=== PATIENT | male | born 1985 | race African-American/Black ===

== ENCOUNTER 2023-11-09 06:25 | Day surgery (SDC) | payer BC, SELFPAY ==
[2023-11-09 08:47] VITALS: BMI 53.2
[2023-11-09 08:50] VITALS: BMI 53.2
[2023-11-09] MEDS: CELEBREX 200 MG PO (08:51)
[2023-11-09] MEDS: TYLENOL 1000 MG PO (08:51)
[2023-11-09] MEDS: NORMOSOL-R/PLASMALYTE-A 1000 IV (08:53)
[2023-11-09 08:57] VITALS: BP 172/86
[2023-11-09 13:00] VITALS: BP 140/92; BP 172/86
[2023-11-09 13:15] VITALS: BP 128/80
[2023-11-09 13:30] VITALS: BP 141/91
[2023-11-09 14:00] VITALS: BP 144/68
== END 2023-11-09 14:30 | disposition home or self-care (01) ==
LOC: SDS 06:25
PROVIDERS: ATTENDING PHYSICIAN Orthopaedic Surgery
DX: S63.591A Other specified sprain of right wrist, initial encounter (principal); X58.XXXA Exposure to other specified factors, initial encounter
CPT/HCPCS: 29846

== ENCOUNTER 2024-01-12 12:09 | Emergency (ER) | payer BC, SELFPAY ==
[2024-01-12 12:17] VITALS: BP 160/83
[2024-01-12 12:45] LABS: % Basophils 0.3 % (0-2); % Eosinophils 1.6 % (0-6); % Immature Granulocytes 0.2 % (0-0.5); % Lymphocytes 40.8 % (20.5-51.1); % Monocytes 9.3 % (1.7-9.3); % Neutrophils 47.8 % (42.2-75.2); Absolute Eosinophils 0.1 10^3/uL (0-0.7); Absolute Lymphocytes 2.5 10^3/uL (1.2-3.4); Absolute Monocytes 0.6 10^3/uL (0.1-0.6); Absolute Neutrophils 2.9 10^3/uL (1.4-6.5); Hemoglobin 12.8 g/dL (13.0-18.0); Mean Corp Hgb Conc. 32.8 g/dL (33.0-37.0); Mean Corpuscular Volume 76.3 fL (80.0-94.0); Mean Platelet Volume 9.2 fL (7.4-10.4); Nucleated Red Blood Cells % 0 % (-); Platelet Count 231 10^3/uL (130-400); Red Blood Cell Count 5.11 10^6/uL (4.70-6.10); Red Cell Dist. Width 15.9 % (11.5-14.5); White Blood Cell Count 6.1 10^3/uL (4.8-10.8)
[2024-01-12 13:04] LABS: ALT (SGPT) 27 U/L (0-50); AST (SGOT) 22 U/L (17-59); Albumin 4.3 g/dl (3.5-5.0); Alkaline Phosphatase 67 U/L (38-126); Blood Urea Nitrogen 15 mg/dl (9-20); Calcium 9.2 mg/dl (8.4-10.2); Carbon Dioxide 26 mmol/L (22-30); Chloride 103 mmol/L (98-107); Glucose 134 mg/dl (70-99); Potassium 4.1 mmol/L (3.5-5.1); Sodium 138 mmol/L (135-145); Total Bilirubin 0.4 mg/dl (0.2-1.3); Total Protein 7.4 g/dl (6.3-8.2); eGFR > 60.00
[2024-01-12 13:07] LABS: Troponin I < 0.012 ng/ml
--- NOTE | 2024-01-12 14:15 | ED.GENMED ---
History of Present Illness
<Stephanie Hollis PA-C - Last Filed: 01/12/24 19:14>
General
Chief Complaint: Chest Pain
Source: patient
Exam Limitations: none
Time Seen by Provider: 01/12/24 14:15
Nursing documentation reviewed up to this point in time: agreed with
History of Present Illness
History of Present Illness:
38-year-old male with past medical history of sleep apnea, prediabetes presents emergency department today with concerns of generalized URI symptoms and persistent cough for the past week. Patient reports that he originally saw urgent care for this
issue and was started on steroids and azithromycin. Patient reports that his symptoms much improved however his cough still persists. Patient also started develop right-sided chest pain a few days ago. Patient denies shortness of breath, denies
hemoptysis, denies palpitations, denies syncopal episodes. Patient denies any personal or family history of cardiac disease. Patient denies any redness or swelling in his lower extremities, denies recent travel, denies recent surgeries or hospital
stays. Patient denies upper back pain, nausea, vomiting. Patient denies any fevers or chills. Patient denies any sick contacts.
Past History
<Stephanie Hollis PA-C - Last Filed: 01/12/24 19:14>
Past History
ED Past Medical History: NIDDM (Is supposed to take Metformin but doesn't 'I just don't like taking medicine'), Psychiatric (Anxiety/depression/PTSD), Other (Pituitary tumor should take medication 'Cabergoline' (sp?) but doesn't due to side effects)
and Other (Sleep apnea uses CPAP)
ED Past Surgical History: Orthopedic (Lumbar spinal surgery) and Other (Umbilical hernia repair)
Patient has exhibited threatening behavior?: No
Social History
Tobacco: Non-smoker
Alcohol: Occasional
Drug: None
Personal:
Living: with family
Employment: Employed ([employer])
Family History
Family History: Other (Noncontributory)
Review of Systems
<Stephanie Hollis PA-C - Last Filed: 01/12/24 19:14>
Review of Systems
All Other Systems: ROS reviewed and negative except as documented in HPI and ROS
Phy Exam
<JACQUELYN Montanez Last Filed: 01/12/24 19:14>
Physical Exam
Physical Exam:
General: Patient is well appearing and in no acute distress; non-toxic
Skin: Warm and dry, no rashes or lesions
Head: Normocephalic, atraumatic
Eyes: Sclera non-icteric. EOMs intact. PERRLA.
Ears: No TM erythema noted bilaterally
Cardiac: Regular rate and rhythm, no murmurs. Mild tenderness to palpation in the right external chest wall.
Peripheral Vascular: No lower extremity swelling or edema
Pulm: Normal respiratory effort, scattered rhonchi heard bilaterally that clears with coughing
Neuro: CN II-XII intact, no focal neurologic deficits.
Psychiatric: Appropriate mood and affect.
Scores
<Stephanie Hollis PA-C - Last Filed: 01/12/24 19:14>
Heart Score for Chest Pain Patients
STEMI patient?: No
History: Slightly or Non-Suspicious
ECG: Normal
Age: </= 45 years
Risk Factors: 1 or 2 Risk Factors
Troponin: </= Normal Limit
Heart Score for Chest Pain Patients: 1
Heart Score Risk: 2.5% MACE over next 6 weeks
Course
<Stephanie Hollis PA-C - Last Filed: 01/12/24 19:14>
Orders/Labs/Results
Orders:
Orders
01/12/24 12:11
Electrocardiogram (*1) Urgent
Reason for Study: Chest Pain
EKG- Treatment ONCE
01/12/24 12:20
Chest [CR Chest - 2 Views ] Urgent
Comment:
Reason For Exam: cough
01/12/24 12:27
Complete Blood Count/With Diff Urgent
Comprehensive Metabolic Panel Urgent
Troponin I Urgent
01/12/24 14:38
COVID-19 Antigen Urgent
Source: Nasal Swab
D-Dimer Urgent
Influenza A+B Rapid Molecular Urgent
OTTO Source: Nasal Swab
Specimen Description:
Abnormal Lab Results
01/12/24
12:27
Hgb 12.8 L g/dL
(13.0-18.0)
MCV 76.3 L fL
(80.0-94.0)
MCH 25.0 L pg
(27.0-31.0)
MCHC 32.8 L g/dL
(33.0-37.0)
RDW 15.9 H %
(11.5-14.5)
Glucose 134 H mg/dl
(70-99)
01/12/24 12:27
01/12/24 12:27
Vital Signs
Initial and Last Documented VS:
Initial Vital Signs
Temp Pulse Resp BP Pulse Ox
98.4 F 82 18 160/83 98
01/12/24 12:17 01/12/24 12:17 01/12/24 12:17 01/12/24 12:17 01/12/24 12:17
Last Documented Vital Signs
Temp Pulse Resp BP Pulse Ox
98.4 F 66 17 102/55 99
01/12/24 12:17 01/12/24 15:00 01/12/24 15:00 01/12/24 15:00 01/12/24 15:00
<Vasiliy Reyes, DO - Last Filed: 01/12/24 15:33>
Orders/Labs/Results
Orders:
Orders
01/12/24 12:11
Electrocardiogram (*1) Urgent
Reason for Study: Chest Pain
EKG- Treatment ONCE
01/12/24 12:20
Chest [CR Chest - 2 Views ] Urgent
Comment:
Reason For Exam: cough
01/12/24 12:27
Complete Blood Count/With Diff Urgent
Comprehensive Metabolic Panel Urgent
Troponin I Urgent
01/12/24 14:38
COVID-19 Antigen Urgent
Source: Nasal Swab
D-Dimer Urgent
Influenza A+B Rapid Molecular Urgent
OTTO Source: Nasal Swab
Specimen Description:
Abnormal Lab Results
01/12/24
12:27
Hgb 12.8 L g/dL
(13.0-18.0)
MCV 76.3 L fL
(80.0-94.0)
MCH 25.0 L pg
(27.0-31.0)
MCHC 32.8 L g/dL
(33.0-37.0)
RDW 15.9 H %
(11.5-14.5)
Glucose 134 H mg/dl
(70-99)
01/12/24 12:27
01/12/24 12:27
Vital Signs
Initial and Last Documented VS:
Initial Vital Signs
Temp Pulse Resp BP Pulse Ox
98.4 F 82 18 160/83 98
01/12/24 12:17 01/12/24 12:17 01/12/24 12:17 01/12/24 12:17 01/12/24 12:17
Last Documented Vital Signs
Temp Pulse Resp BP Pulse Ox
98.4 F 66 17 102/55 99
01/12/24 12:17 01/12/24 15:00 01/12/24 15:00 01/12/24 15:00 01/12/24 15:00
<Stephanie Hollis PA-C - Last Filed: 01/12/24 19:14>
MDM/Problems Addressed
Differential Diagnosis Includes:
Differentials include acute bronchitis, pneumothorax, pneumonia, COVID-19 infection, influenza
MDM/Problems Addressed:
38 y/o male with pmh of sleep apnea, pre-diabetes presents to the emergency department today with concerns of persistent URI symptoms, as well as chest pain. Here in the emergency department, he is well-appearing, no acute distress, afebrile, he is
not hypoxic. CBC and CMP are unremarkable. He tested negative for COVID and flu. His troponin is undetectable. No indication for repeat troponin at this time. He is EKG shows normal sinus rhythm with no concerning ischemic changes, no
arrhythmia. CXR no evidence of pneumonia. D-dimer negative. Suspect CP secondary to persistent coughing. Suspected prolonged viral syndrome. I did offer tessalon pearls. Patient stable for discharge.
<Stephanie Hollis PA-C - Last Filed: 01/12/24 19:14>
*Pulse Oximetry
Patient hypoxic: no
*EKG
Interpreted by ED Provider?: Yes
EKG Intrepretation Date: 01/12/24
Interpretation: normal
Comparison EKG: changes noted (ventricular rate increased by 34 bpm)
Heart Rate: 86
Rate: normal
Rhythm: sinus
[place]: normal axis
Interval: normal interval
QRS Pattern: normal QRS
*Critical Care Note
Total Time (30-74mins, 75-104mins- exclusive of procedures): Not Applicable
Data Reviewed
Review of Other/Old Records Reveals: Records (Reviewed previous ER physician documentation from 02/23/2021)
ED Attending Note
<Stephanie Hollis PA-C - Last Filed: 01/12/24 19:14>
-
Portions of this chart may have been created with voice recognition software.� Occasional wrong word or��sound alike� substitutions may have occurred due to the inherent limitations of voice recognition software.
<Vasiliy Reyes, DO - Last Filed: 01/12/24 15:33>
ED Attending Note
Patient seen and examined by attending physician: Yes
I performed a history and physical exam of patient and discussed management with resident, I reviewed resident's note and agree with documented findings and plan of care.: Yes
ED Attending Note:
I reviewed and agree with history and treatment plan by Stephanie Hollis. My exam reveals 38-year-old no acute distress. Suspect bronchitis. Doubt ACS or PE. Stable for discharge.
Discharge Plan
Departure
Patient Disposition: Home (Routine Discharge)
Date of Disposition: 01/12/24
Time of Disposition: 15:26
Patient with high blood pressure during this ER visit?: Yes
Condition: Good
Discharge Problem:
Cough, Symptoms of upper respiratory infection (URI), Chest pain
Instructions: Cough, runny nose, and the common cold, Chest pain, BLOOD PRESSURE
Prescriptions:
New
benzonatate 100 mg capsule
100 mg PO TID Qty: 10 0RF
No Action
Ozempic 0.25 mg or 0.5 mg (2 mg/3 mL) Pen Injector
0.25 mg SC QWEEK
Referrals:
NONE,* [Family Provider] -
Activity Restrictions/Additional Instructions:
You can take 1 tablet 3 times a day as needed for cough. You can increase dosing to 2 tablets 3 times a day as needed. Please do not exceed 600 mg in a day.
I also recommend trying her albuterol inhaler again.
Please return to the emergency department should you experience acute worsening of your chest pain, shortness of breath, fainting spells, palpitations, weakness on one-sided body versus other, or other signs or symptoms worrisome to you.
Interventions
Interventions:
*Risk Screen - Suicide Last Done: 01/12/24 12:17
*General Assessment Last Done: 01/12/24 12:17
*Neglect/Abuse Screening Last Done: 01/12/24 12:17
*ED COVID-19 Vaccine History Last Done: 01/12/24 12:17
*Nursing Disposition Last Done: 01/12/24 15:43
ED- Cardiac Assessment Last Done: 01/12/24 14:37
Discharge Date and Time
Discharge Date/Time: 01/12/24 15:43
Print Language: ROMANSH
[2024-01-12 14:34] VITALS: BP 100/63
[2024-01-12 15:00] VITALS: BP 102/55
[2024-01-12 15:05] LABS: D-Dimer 0.34 ug/mlFEU (0.00-0.50)
[2024-01-12 15:09] LABS: COVID-19 Antigen Negative (Negative)
== END 2024-01-12 15:43 | disposition home or self-care (01) ==
LOC: EMR 12:09
PROVIDERS: Emergency Medicine; Physician Assistant; EMERGENCY PHYSICIAN Emergency Medicine
DX: R05.9 Cough, unspecified (principal); R07.89 Other chest pain; G47.30 Sleep apnea, unspecified; E11.9 Type 2 diabetes mellitus without complications; F41.8 Other specified anxiety disorders; F43.10 Post-traumatic stress disorder, unspecified
CPT/HCPCS: 99283; 71046; 80053; 84484; 85025; 85379; 87502; 87811; 93005

== ENCOUNTER 2024-08-22 18:26 | Observation (INO) | payer BC, SELFPAY ==
[2024-08-22] VITALS (8 sets, daily range): BP systolic 110–180; BP diastolic 69–119; BMI 53.5
[2024-08-22 13:45] LABS: Glucose - Point of Care 120 mg/dl (70-99)
--- NOTE | 2024-08-22 13:58 | ED.CVA ---
History of Present Illness
General
Chief Complaint: CVA/TIA Symptoms
Source: patient
Exam Limitations: none
Time Seen by Provider: 08/22/24 13:47
Nursing documentation reviewed up to this point in time: agreed with
Onset of Stroke Symptoms
Onset of symptoms known: Yes
Date of onset of symptoms: 08/22/24
Time of onset of symptoms: 12:30
History of Present Illness
History of Present Illness:
Patient presents to ED secondary to sudden onset of left arm numbness and weakness, left facial numbness sensation, as well as brief moment of inability to speak while he was at work, an approximate 1 hour prior to arrival. Denies headache. Denies
dizziness. Denies blurred vision. Denies difficulty with swallowing. Denies difficulty with ambulation. Patient states that he has had similar left arm weakness and numbness, which have always resolved spontaneously. However, those symptoms
have never been associated with facial numbness or speech difficulty. Denies recent illness. Denies recent change in medications or diet.
Past History
Past History
ED Past Medical History: NIDDM (Is supposed to take Metformin but doesn't 'I just don't like taking medicine'), Psychiatric (Anxiety/depression/PTSD), Other (Pituitary tumor should take medication 'Cabergoline' (sp?) but doesn't due to side effects)
and Other (Sleep apnea uses CPAP)
ED Past Surgical History: Orthopedic (Lumbar spinal surgery) and Other (Umbilical hernia repair)
Patient has exhibited threatening behavior?: No
Social History
Tobacco: Non-smoker
Alcohol: Occasional
Drug: None
Personal:
Living: with family
Employment: Employed ([employer])
Family History
Family History: Other (Noncontributory)
Review of Systems
Review of Systems
Allergies reviewed?: Yes
All Other Systems: ROS reviewed and negative except as documented in HPI and ROS
Constitutional: Reports no symptoms
Respiratory: Reports no symptoms
Cardiac: Reports no symptoms
ABD/GI: Reports no symptoms
Musculoskeletal: Reports no symptoms
Skin: Reports no symptoms
Neurological: Reports weakness, numbness and other (difficulty with speech)
Phy Exam
Physical Exam
Physical Exam:
Physical Exam
General: no apparent distress, not acutely ill. afebrile. overweight
Head: nc/at. eomi
Neck: supple. no meningeal signs.
Heart: s1/s2 regular rate and rhythm
Lungs: no acute respiratory distress. clear bilaterally
Abdomen: normal bowel sounds. not tender.
Neuro: alert and oriented x 3. no focal neurological deficits. normal speech
Skin: no rash
Psychiatric: well kept. interactive and cooperative
Extremities: no edema. no calf tenderness.
Course
Orders/Labs/Results
Orders:
Orders
08/22/24 13:24
Electrocardiogram (*1) Urgent
Reason for Study: Vertigo / Dizzy
EKG- Treatment ONCE
08/22/24 13:56
Electrocardiogram (*1) Urgent
Reason for Study: Chest Pain
EKG- Treatment ONCE
08/22/24 14:00
Complete Blood Count/With Diff Urgent
Comprehensive Metabolic Panel Urgent
Magnesium Urgent
Troponin I Urgent
08/22/24 14:18
CT Head W/o Iv Contrast Urgent
Comment:
Reason For Exam: LUE/facial numbness/weakness
08/22/24 15:28
Bupivacaine Pf 0.5% [Sensorcaine 0.5% Single Dose] 30 ml INJ OR ONE
Triamcinolone Injectable [Kenalog-40] 40 mg IM NOW ONE
08/22/24 15:45
CT Head Angio W/wo Iv Contrast Urgent
Comment:
Reason For Exam: LUE/facial numbness/weaknss
08/22/24 17:45
Aspirin 325 mg PO NOW STA
Clopidogrel Bisulfate [Plavix] 300 mg PO NOW STA
08/22/24 18:05
Admit/Transfer Patient As Directed
Co-Sign Provider:
Level of Care: Observation services
Assign to:: Telemetry
Physician / Group: danii borja
Diagnosis: TIA/CVA
Reason for Telemetry: Arrhythmia
Date to Stop Telemetry: 08/25/24
Time to Stop Telemetry: 11:00
PRN Pain Medication Management As Directed
May give lesser potent ordered pain med per pt: Yes
preference::
Protocol:: Medication orders for pain may be administered in a
manner that supports deferring to patient preference
when the pt is:
- Requesting an ordered lesser potent pain medication.
Least to most potent pain medications are defined
as: acetaminophen < NSAID < tramadol < opioids
(morphine, oxycodone, hydromorphone).
- Requesting a lesser dose of the same medication IF
ORDERED.
- Requesting a less intrusive route of administration
if both routes are prescribed by the provider (PO <
IV).
08/22/24 18:06
Code Status As Directed
Resuscitation Status: Full Code
08/22/24 18:15
Carotid US [US Cerebrovascular] Routine
Comment:
Reason For Exam: TIA/CVA
08/25/24 11:00
DC Protocol for Telemetry ONCE
Abnormal Lab Results
08/22/24 08/22/24
13:44 14:00
Hgb 12.0 L g/dL
(13.0-18.0)
Hct 36.5 L %
(39.0-52.0)
MCV 74.6 L fL
(80.0-94.0)
MCH 24.5 L pg
(27.0-31.0)
MCHC 32.9 L g/dL
(33.0-37.0)
RDW 16.0 H %
(11.5-14.5)
Absolute Monos (auto) 0.8 H 10^3/uL
(0.1-0.6)
Monocytes % 14.9 H %
(1.7-9.3)
Carbon Dioxide 31 H mmol/L
(22-30)
Glucose 100 H mg/dl
(70-99)
POC Glucose 120 H mg/dl
(70-99)
08/22/24 14:00
08/22/24 14:00
Vital Signs
Initial and Last Documented VS:
Initial Vital Signs
Temp Pulse Resp BP Pulse Ox
98.7 F 82 20 180/119 96
08/22/24 13:34 08/22/24 13:34 08/22/24 13:34 08/22/24 13:34 08/22/24 13:34
Last Documented Vital Signs
Temp Pulse Resp BP Pulse Ox
98.7 F 64 15 145/78 96
08/22/24 13:34 08/22/24 17:00 08/22/24 17:00 08/22/24 17:00 08/22/24 13:58
MDM/Problems Addressed
MDM/Problems Addressed:
Patient evaluated shortly upon arrival by Dr. Becerril, neurology. CT head and CTA head and neck ordered after evaluation. Patient is not a candidate for tenecteplase, secondary to low NIH score without any focal neurological deficit.
CT head/CTA without acute findings. Dr. Becerril, neurology, recommends admission for further workup and starting patient on aspirin and Plavix.
*Pulse Oximetry
SaO2: 96
Oxygen Mode of Delivery: Room air
Patient hypoxic: no
*EKG
Interpreted by ED Provider?: Yes
EKG Intrepretation Date: 08/22/24
Heart Rate: 71
Rate: normal
Rhythm: sinus
[place]: normal axis
Interval: normal interval
*Critical Care Note
Total Time (30-74mins, 75-104mins- exclusive of procedures): Not Applicable
ED Attending Note
-
Portions of this chart may have been created with voice recognition software.� Occasional wrong word or��sound alike� substitutions may have occurred due to the inherent limitations of voice recognition software.
Discharge Plan
Departure
Patient Disposition: Admit
Date of Disposition: 08/22/24
Time of Disposition: 17:46
Admit to: Telemetry
Presentation/result/management discussed w/ accepting MD/DO: Hospitalist
Discharge Problem:
Arm weakness, Expressive aphasia
Interventions
Interventions:
*Risk Screen - Suicide Last Done: 08/22/24 13:34
*General Assessment Last Done: 08/22/24 13:53
*Neglect/Abuse Screening Last Done: 08/22/24 13:34
*ED COVID-19 Vaccine History Last Done: 08/22/24 13:34
ED- Pulmonary Assessment Last Done: 08/22/24 13:53
ED- Neurological Assessment Last Done: 08/22/24 13:53
ED- Cardiac Assessment Last Done: 08/22/24 13:53
[2024-08-22 14:06] LABS: Hematocrit 36.5 % (39.0-52.0); Hemoglobin 12.0 g/dL (13.0-18.0); Mean Corp Hgb Conc. 32.9 g/dL (33.0-37.0); Mean Corpuscular Volume 74.6 fL (80.0-94.0); Nucleated Red Blood Cells % 0 % (-); Platelet Count 192 10^3/uL (130-400); Red Cell Dist. Width 16.0 % (11.5-14.5)
[2024-08-22 14:37] LABS: ALT (SGPT) 21 U/L (0-50); AST (SGOT) 19 U/L (17-59); Albumin 4.5 g/dl (3.5-5.0); Alkaline Phosphatase 48 U/L (38-126); Blood Urea Nitrogen 17 mg/dl (9-20); Calcium 9.5 mg/dl (8.4-10.2); Carbon Dioxide 31 mmol/L (22-30); Chloride 105 mmol/L (98-107); Estimated Creatinine Clearance > 125 ml/min; Glucose 100 mg/dl (70-99); Magnesium 2.0 mg/dl (1.6-2.3); Potassium 3.8 mmol/L (3.5-5.1); Sodium 141 mmol/L (135-145); Total Protein 7.6 g/dl (6.3-8.2); eGFR > 60.00
[2024-08-22 14:48] LABS: Troponin I < 0.012 ng/ml
[2024-08-22] MEDS: PLAVIX 300 MG PO (17:57)
[2024-08-22] MEDS: ASPIRIN 325 MG PO (17:57)
--- NOTE | 2024-08-22 18:09 | HPS.HSE ---
Family Physician
-
Family Physician: Thomas Jones
Chief Complaint
-
Left upper extremity tingling and expressive aphasia
History of Present Illness
38-year-old male with past medical history of wxz-otsnwmy-upmjiubng diabetes mellitus, pituitary tumor, anxiety, depression, PTSD, lumbar disc disease, sleep apnea came to the hospital with left arm numbness and expressive aphasia. Per patient his
symptoms started around noon. His symptoms lasted around 30 minutes. Denies any previous symptoms. Patient does noted to have issues with compliance with all of his medications. Currently he denies any chest pain, shortness of breath. Denies
any abdominal pain, nausea, vomiting, diarrhea, constipation. Seen by neurology in the ED who recommended admission for further workup.
Medical History
Past Medical History
Past Medical History: Reports NIDDM and Other (Pituitary tumor, depression, anxiety, PTSD)
Past Surgical History: Reports Orthopedic
Social History
Tobacco: Non-smoker
Alcohol: Occasional
Drug: None
Family History
Family History: Not pertinent
Allergies / Home Medications
Allergies reflects when Allergies were last updated in [facility].
Home Medications with original date entered in [facility]
Allergy/Medication List:
Allergies
Allergy/AdvReac Type Severity Reaction Status Date / Time
No Known Allergies Allergy Verified 08/22/24 13:40
Home Medications
Ez Melts Multivitamin W/ Iron 1 tab PO DAILY 08/22/24
ibuprofen 200 mg tablet 400 mg PO DAILYPRN PRN mild pain 08/22/24
metformin 500 mg tablet 500 mg PO HS 08/22/24
vitamin D3-vitamin K2 1 cap PO DAILYPRN PRN supplement 08/22/24
Review of Systems
-
History Source: Patient
A 12 point ROS was completed and negative except as noted: Yes
Neurological: Reports Numbness
Physical Exam
Vital Signs
Vital Signs
Temp Pulse Resp BP Pulse Ox
98.7 F 64 15 145/78 96
08/22/24 13:34 08/22/24 17:00 08/22/24 17:00 08/22/24 17:00 08/22/24 13:58
Physical Exam
General: Well Nourished, No Apparent Distress and Morbidly Obese
HEENT: Anicteric and Moist mucous membranes
Respiratory: Clear and Non Labored Respirations; No Wheezes
Cardiac: S1/S2 and Regular Rhythm
GI: Soft, Non Tender, Non Distended and Normal Bowel Sounds
Rectal: Deferred by Provider
Genito-urinary: No [place]
Musculoskeletal: No Edema
Neuro: Awake, Alert, Oriented and AO x 3
Psych: Calm and Intact Judgment/Insight
Laboratory Results
-
08/22/24 14:00
08/22/24 14:00
Laboratory Results
Total Bilirubin 0.5 mg/dl (0.2-1.3) 08/22/24 14:00
AST 19 U/L (17-59) 08/22/24 14:00
ALT 21 U/L (0-50) 08/22/24 14:00
Alkaline Phosphatase 48 U/L (38-126) 08/22/24 14:00
Troponin I < 0.012 ng/ml 08/22/24 14:00
Data Reviewed
-
CT Scan: Report Reviewed by me, Discussed with Patient and Discussed with Family
Lab Data: Labs Reviewed by me and Discussed with Patient
Impression/Plan
-
Left arm tingling and expressive aphasia likely secondary to TIA/CVA
Continue neurochecks
Aspirin Plavix load in the ED per neurology
Start baby aspirin and Plavix 75 mg starting tomorrow
Check MRI
CT without any hemorrhage
Check A1c, lipid profile
History of diabetes
Per patient not compliant with metformin
Check A1c, insulin sliding scale, Accu-Cheks for now
History of pituitary tumor
Follows with endocrinology outpatient
History of lumbar disc disease
History of sleep apnea
DVT prophy
Lovenox
Full code
--- NOTE | 2024-08-22 20:31 | CON.NEURO ---
Neuro Assessment/Plan
Assessment
head CT imgs rev'd normal
CTA head/neck imgs and rept rev'd, no atherosclerosis.
38 year old man with sudden expressive aphasia, concern for stroke. multiple risk factors including diabetes, sleep apnea, morbid obesity despite young age. ddx including MS
admit for brain MRI w/o and with contrast given concerns for MS
loaded ASA and Plavix, 21 days of DAPT tentatively
Consultation
Order
Date of Consultation: 08/22/24
Requesting Provider: Fahad Alonso
Reason for Consult: stroke
Subjective/Objective
Subjective Data
Date of Service: August 22, 2024
from h&p:
Patient presents to ED secondary to sudden onset of left arm numbness and weakness, left facial numbness sensation, as well as brief moment of inability to speak while he was at work, an approximate 1 hour prior to arrival. Denies headache. Denies
dizziness. Denies blurred vision. Denies difficulty with swallowing. Denies difficulty with ambulation. Patient states that he has had similar left arm weakness and numbness, which have always resolved spontaneously. However, those symptoms
have never been associated with facial numbness or speech difficulty. Denies recent illness. Denies recent change in medications or diet.
I saw him around 2pm after speaking with Dr Alonso and did not call a stroke alert as patient symptoms were mild and he refused TNK
Objective Data
Vital Signs
Temp Pulse Resp BP Pulse Ox
36.4 C 63 16 148/91 98
08/22/24 20:21 08/22/24 20:21 08/22/24 20:21 08/22/24 20:21 08/22/24 20:21
Lab Results
08/22/24 14:00
08/22/24 14:00
Sodium 141 mmol/L (135-145) 08/22/24 14:00
Potassium 3.8 mmol/L (3.5-5.1) 08/22/24 14:00
BUN 17 mg/dl (9-20) 08/22/24 14:00
Glucose 100 mg/dl (70-99) H 08/22/24 14:00
Calcium 9.5 mg/dl (8.4-10.2) 08/22/24 14:00
Patient Allergies
No Known Allergies Allergy (Verified 08/22/24 13:40)
CVA Assessment
Onset of Stroke Symptoms
Date of onset of symptoms: 08/22/24
Time of onset of symptoms: 12:30
Physical Exam
-
mild expressive aphasia difficulty identifying pictures/reading printed materials
face symmetric
full strength b/l UE/LE
palpated T1 subluxation with left paraspinals trigger point, when pushed on exacerbates the left arm paresthesias
Medications
-
Active Medications
Generic Name Dose Route Start Last Admin
Trade Name Freq PRN Reason Stop Dose Admin
Acetaminophen 650 mg 08/22/24 20:00
Acetaminophen 650 Mg Rectal Suppository RECTAL 09/19/24 19:59
Q4HPRN PRN
[place], mild pain, or temp >100.4F
Acetaminophen 650 mg 08/22/24 20:00
Acetaminophen 325 Mg Tablet PO 09/19/24 19:59
Q4HPRN PRN
[place], mild pain, or temp >100.4F
Aspirin 81 mg 08/23/24 08:00
Aspirin 81 Mg Chewable Tablet PO 09/20/24 07:59
DAILY GAYE
Clopidogrel Bisulfate 75 mg 08/23/24 08:00
Clopidogrel 75 Mg Tablet PO 09/20/24 07:59
DAILY GAYE
Dextrose 12.5 grams 08/22/24 20:00
Dextrose 50% (0.5 Grams/Ml) 50 Ml Syringe IV 09/19/24 19:59
[id number] PRN
hypoglycemia
Protocol
Enoxaparin Sodium 40 mg 08/23/24 18:00
Enoxaparin Sodium 40 Mg/0.4 Ml Syringe SC 09/20/24 17:59
QPM GAYE
Glucagon 1 mg 08/22/24 20:00
Glucagon 1 Mg Vial IM 09/19/24 19:59
PRN PRN
hypoglycemia
Protocol
Ibuprofen 400 mg 08/22/24 20:00
Ibuprofen 200 Mg Tablet PO 09/19/24 19:59
DAILYPRN PRN
mod pain
Insulin Aspart 0 units 08/23/24 07:30
Insulin Aspart Low Resistance 300 Units/3 Ml Pen.Injctr SC 09/20/24 07:29
AC GAYE
Protocol
Multivitamins Therapeutic 1 tablet 08/23/24 08:00
Multivitamin Tablet PO 09/20/24 07:59
DAILY GAYE
Sodium Chloride 0 flush 08/22/24 21:00
Sodium Chloride 0.9% (Flush) Syringe IV 09/19/24 20:59
PER PROTOCOL GAYE
Home Medications
�Medication �Instructions �Recorded
Ez Melts Multivitamin W/ Iron 1 tab PO DAILY 08/22/24
ibuprofen 200 mg tablet 400 mg PO DAILYPRN PRN mild pain 08/22/24
metformin 500 mg tablet 500 mg PO HS 08/22/24
vitamin D3-vitamin K2 1 cap PO DAILYPRN PRN supplement 08/22/24
[2024-08-22] MEDS: MELATONIN 5 MG PO (23:24)
--- NOTE | 2024-08-23 02:36 | TRANSFER ---
Pt transferred to 3w from ED via stretcher. Pt stood for standing weight and ambulated to hospital bed. Bp 144/85 P 68 R 16 T 97.9 02 98. NIH 0. Pt wears Cpap HS at baseline. Oriented to room, call lyle within reach, plan of care ongoing.
[2024-08-23 03:00] VITALS: BP 131/85
[2024-08-23 06:55] LABS: Hematocrit 36.5 % (39.0-52.0); Hemoglobin 12.1 g/dL (13.0-18.0); Mean Corp Hgb Conc. 33.2 g/dL (33.0-37.0); Mean Corpuscular Volume 73.6 fL (80.0-94.0); Nucleated Red Blood Cells % 0 % (-); Platelet Count 207 10^3/uL (130-400); Red Cell Dist. Width 15.9 % (11.5-14.5)
[2024-08-23 07:20] LABS: Blood Urea Nitrogen 16 mg/dl (9-20); Calcium 9.2 mg/dl (8.4-10.2); Carbon Dioxide 23 mmol/L (22-30); Chloride 108 mmol/L (98-107); Estimated Creatinine Clearance > 125 ml/min; Glucose 106 mg/dl (70-99); HDL Cholesterol 41 mg/dl; LDL Cholesterol, Calculated 138 mg/dl; Potassium 4.5 mmol/L (3.5-5.1); Sodium 138 mmol/L (135-145); Very Low Density Lipoprotein 13 mg/dl (0-30); eGFR > 60.00
[2024-08-23 07:45] VITALS: BP 154/93
[2024-08-23 08:10] LABS: Glycohemoglobin (HgbA1c) 6.5 % (4.0-5.6)
[2024-08-23 08:37] LABS: Glucose - Point of Care 127 mg/dl (70-99)
[2024-08-23] MEDS: THERAGRAN 1 TABLET PO (08:38)
[2024-08-23] MEDS: PLAVIX 75 MG PO (08:38)
[2024-08-23] MEDS: LOW STRENGTH ASPIRIN 81 MG PO (08:38)
--- NOTE | 2024-08-23 08:40 | PTCARENOTE ---
pt verbalized to speech therapist that he 'felt foggy', needing to think about 'What to say', difficulty verbalizing thoughts. upon going in to assess patient, he confirmed this and verbalized that he was feeing anxious and c/o shoulder area and
left arm felt 'heavy', intermittent tingling' and he 'just didn't feel right'. Dr. Mensah and Dr. Becerril notified and agreed that he intermittently had this yesterday. will continue to monitor.
--- NOTE | 2024-08-23 09:00 | PTCARENOTE ---
symptoms resolving, will continue to monitor.
--- NOTE | 2024-08-23 09:12 | PTOTSP ---
Dysphagia Evaluation
Patient with no signs of oral dysphagia, reporting signs concerning for possible pharyngeal dysphagia (i.e., sensation of stasis on left side of throat with dry solids, relieved with a liquid wash x2), and no signs of aspiration.
Slow formulation of expressive language observed and reported by patient. Quick Aphasia Battery 1 attempted but had to be discontinued (see patient care note). Mild signs of expressive aphasia noted (i.e., telegraphic speech with picture
description, word substitutions, filler use/pauses) with picture description task.
Recommend:
1. IDDSI 7 Regular, Thin
2. Medications as best tolerated
3. Alternate sips and bites
4. Language/cognitive evaluation if/when medically appropriate
5. Dysphagia f/u to determine tolerance of diet with strategies and if/when instrumental testing warranted
--- NOTE | 2024-08-23 09:16 | PTOTSP ---
The patient is independent with mobility and offered no concerns regarding mobility upon return home. No PT needs identified at this time, will sign off.
[2024-08-23 11:12] LABS: Troponin I < 0.012 ng/ml
[2024-08-23 11:17] VITALS: BP 140/87
--- NOTE | 2024-08-23 12:04 | W.PN.HOSP.TC ---
Addendum entered and electronically signed by Arthur Dumont MD 08/23/24 16:45:
MRI negative for acute CVA. Discussed with neurology who also discussed with the patient. Patient symptoms have improved. Discharge today. Dual antiplatelet therapy for 21 days and then aspirin alone. Lipitor. Patient is also hypertensive,
started lisinopril. Patient is aware to check his blood pressure twice daily and to follow-up with his primary care provider outpatient with readings for further blood pressure medication titration.
Time of discharge 38 minutes
Original Note:
Today's Communication/Plan
-
Monitor vital signs see plan
Continue with aspirin and Plavix
MRI
Carotid ultrasound pending
Assessment / Plan
Assessment / Plan
General: Well Nourished, No Apparent Distress and Morbidly Obese
HEENT: Anicteric and Moist mucous membranes
Respiratory: Clear and Non Labored Respirations; No Wheezes
Cardiac: S1/S2 and Regular Rhythm
GI: Soft, Non Tender, Non Distended and Normal Bowel Sounds
Genito-urinary: No Carpio
Musculoskeletal: No Edema
Neuro: Awake, Alert, Oriented and AO x 3
Psych: Calm and Intact Judgment/Insight
Left arm tingling and expressive aphasia likely secondary to TIA/CVA
Continue neurochecks
Aspirin Plavix load in the ED per neurology
Continue with dual antiplatelet therapy
Check MRI with and without contrast per neurology to rule out MS
CT without any hemorrhage
A1c 6.5
Carotid ultrasound pending
History of diabetes
Per patient not compliant with metformin
insulin sliding scale, Accu-Cheks for now
History of pituitary tumor
Follows with endocrinology outpatient
History of lumbar disc disease
History of sleep apnea
CPAP
DVT prophylaxis
Lovenox
Full code
Anticipated Discharge: Within 24 hours
Subjective/Interval History
-
Date of Service: August 23, 2024
Still has intermittent left arm tingling
Objective Data
-
Labs:
Laboratory Results
08/23/24
06:15
WBC 4.6 L
Hgb 12.1 L
Hct 36.5 L
Plt Count 207
Sodium 138
Potassium 4.5
Chloride 108 H
Carbon Dioxide 23
BUN 16
Creatinine 0.8
Glucose 106 H
Calcium 9.2
Vital Signs:
Vital Signs
Temp Pulse Resp BP Pulse Ox
98.9 F 58 14 140/87 98
08/23/24 11:17 08/23/24 11:17 08/23/24 11:17 08/23/24 11:17 08/23/24 11:17
I&O
08/22/24 08/23/24 08/24/24
06:59 06:59 06:59
Intake Total 1679 / 1679
Balance 1679 / 1679
[2024-08-23 12:10] LABS: Glucose - Point of Care 105 mg/dl (70-99)
--- NOTE | 2024-08-23 12:28 | CM ---
Patient seen at bedside with
await MRI
OBS status-form explained & signed. in chart
IA completed
CM consult completed
Lives with in a multi-story home, 4 steps to enter, flight to bed/bath, powder room on 1st floor
PLOF: Independent
Denies DME
Denies VN/Rehab
PT/OT/ST to eval
PCP: Thomas Jones
Pharmacy: [facility]
PLAN; home, await PT/OT evals
[2024-08-23 12:42] VITALS: BP 161/101; PULSE 65; O2SAT 97
--- NOTE | 2024-08-23 12:49 | PTOTSP ---
pt currently requires no assistance to complete simple ADLs, functional transfers, ambulation. pt with no overt deficits or symptoms from initial complaint. no acute OT needs identified at this time, will sign off.
[2024-08-23 15:51] VITALS: BP 151/96
[2024-08-23 16:37] LABS: Glucose - Point of Care 117 mg/dl (70-99)
--- NOTE | 2024-08-23 16:46 | W.DCSUMMARY ---
Discharge Summary
Discharge Data
Date of Admission: 08/22/24
Date of Discharge: 08/23/24
-
Pending Results: No
Hospital Course
38-year-old male with past medical history of diabetes, pituitary tumor, lumbar disc disease, sleep apnea came to the hospital with left arm tingling and expressive aphasia. Patient was seen by neurology throughout hospitalization. On admission
patient was given aspirin and Plavix and was admitted for MRI. MRI of the brain did not show any signs of CVA. Patient symptoms appear to be secondary to TIA. Patient instructed to continue aspirin and Plavix for total 21 days and then aspirin
alone. Patient LDL was also elevated so was started on Lipitor. On this hospitalization he was also hypertensive and was started on lisinopril. On discharge he was instructed to continue monitoring his blood pressure and to follow-up with primary
care provider for further blood pressure medication titration. Once his symptoms continue to improve, he was then discharged home with instructions to follow-up with all his physicians outpatient.
Discharge Plan
-
Patient Disposition: Home (Routine Discharge)
Discharge Diagnosis/Procedures: TIA
HTN
Diet: As tolerated
Activity: As tolerated
Driving Restrictions: As prior to admission
Bathing Restrictions: None
Activity Restrictions/Additional Instructions:
Continue aspirin and Plavix through 09/11/2024. Starting 09/12/2024 discontinue Plavix and continue aspirin indefinitely
Check your blood pressure twice daily and to follow-up with your primary care provider for further blood pressure medication titration
Referrals:
Thomas Jones DO [Family Provider, Family Practice] - in less than 1 week
Guille Wolff MD [Active, Neurology]
Prescriptions:
New
atorvastatin 80 mg Tablet
80 mg PO QPM Qty: 30 0RF
clopidogrel 75 mg Tablet
75 mg PO DAILY Qty: 19 0RF
lisinopril 10 mg Tablet
10 mg PO DAILY Qty: 30 0RF
aspirin 81 mg Tablet,Chewable
81 mg PO DAILY Qty: 30 0RF
Continued
metformin 500 mg tablet
500 mg PO HS
ibuprofen 200 mg Tablet
400 mg PO DAILYPRN PRN (Reason: mild pain)
Patient Comments:
08/22/2024, w/ caffeine per pt.
Ez Melts Multivitamin W/ Iron
1 tab PO DAILY
Patient Comments:
08/22/2024, dissolvable tablet.
vitamin D3-vitamin K2
1 cap PO DAILYPRN PRN (Reason: supplement)
Patient Comments:
08/22/2024, 5000 units of D3 and 120 mcg of K2.
Discharge Orders:
Discharge Patient (As Directed); Ordered 08/23/24
Ordered By: Arthur Dumont
Discharge Date and Time
Discharge Date/Time: 08/23/24 18:41
Print Language: CZECH
[2024-08-23] MEDS: ZESTRIL 10 MG PO (16:59)
== END 2024-08-23 18:41 | disposition home or self-care (01) ==
LOC: 3 WEST ACU 18:26
PROVIDERS: ADMITTING PHYSICIAN Internal Medicine; CONSULT PHYSICIAN Psychiatry & Neurology Clinical Neurophysiology; EMERGENCY PHYSICIAN Emergency Medicine; FAMILY PHYSICIAN Family Medicine
DX: G45.9 Transient cerebral ischemic attack, unspecified (principal); R53.1 Weakness; R47.01 Aphasia; R20.0 Anesthesia of skin; R29.810 Facial weakness; R00.1 Bradycardia, unspecified; G83.24 Monoplegia of upper limb affecting left nondominant side; E11.9 Type 2 diabetes mellitus without complications; G47.30 Sleep apnea, unspecified; E23.6 Other disorders of pituitary gland; F43.10 Post-traumatic stress disorder, unspecified; F41.9 Anxiety disorder, unspecified; F32.A Depression, unspecified; R07.9 Chest pain, unspecified; I10 Essential (primary) hypertension; E66.01 Morbid (severe) obesity due to excess calories; Z68.43 Body mass index [BMI] 50.0-59.9, adult; Z91.148 Patient's other noncompliance with medication regimen for other reason
CPT/HCPCS: 70450; 70496; 70553; 80048; 80053; 80061; 82962; 83036; 83735; 84484; 85025; 92610; 93005; 93880; 94660; 97161; 99285; A9575; G0378; Q9967

== ENCOUNTER 2025-02-06 06:27 | Day surgery (SDC) | payer BC, SELFPAY ==
[2025-02-06] VITALS (9 sets, daily range): BP systolic 124–152; BP diastolic 80–98; BMI 52.1
[2025-02-06] MEDS: TYLENOL 1000 MG PO (08:39)
[2025-02-06] MEDS: CELEBREX 200 MG PO (08:39)
[2025-02-06] MEDS: NORMOSOL-R/PLASMALYTE-A 1000 IV (08:45)
[2025-02-06 08:59] LABS: Glucose - Point of Care 111 mg/dl (70-99)
--- NOTE | 2025-02-06 09:05 | PTCARENOTE ---
Patients took patients ring and earrings.
[2025-02-06 12:03] LABS: Glucose - Point of Care 109 mg/dl (70-99)
== END 2025-02-06 14:00 | disposition home or self-care (01) ==
LOC: SDS 06:27
PROVIDERS: ATTENDING PHYSICIAN Orthopaedic Surgery
DX: S63.591A Other specified sprain of right wrist, initial encounter (principal); X58.XXXA Exposure to other specified factors, initial encounter
CPT/HCPCS: 29846; 82962